=== PATIENT | male | born 1955 | race Caucasian/White ===

== ENCOUNTER 2016-11-27 16:08 | Emergency (ER) | payer SELFPAY ==
[2016-11-27 16:15] VITALS: BP 139/86; PULSE 94; TEMP 98.5; BMI 23.2
--- NOTE | 2016-11-27 17:03 | PDOC ---
History of Present Illness - General Chief Complaint: Bite Stated Complaint: DOG BITE Time Seen by Provider: 11/27/16 16:48 History Source: Patient Exam Limitations: No Limitations - History of Present Illness Initial Comments: 11/27/16 17:03 Delivering soni to a home where unrestrained dog was on the porch, when he came out the second step the dog lashed out and bit him through his left pet leg causing a superficial abrasion and puncture wound to the medial aspect of his left lower extremity. Patient states once he was attacked fell backwards falling onto his back and hitting his head on the sidewalk. There was no LOC, but states has some tenderness and contusion to his scalp, and some tenderness to his posterior chest wall. No shortness of breath, no chest pain or palpitations, no mental status changes, or neurologic changes. Maintenance Planning Clerk of the dog said vaccinations were all up-to-date Occurred: reports: just prior to arrival, this afternoon Severity: reports: mild, moderate Pain Location: reports: lower extremity Method of Injury: Yes: fall Loss of Consciousness: no loss of consciousness Associated Symptoms (Fall): headache Past History - Travel Traveled outside of the country in the last 30 days: No Close contact w/someone who was outside of country & ill: No - Past Medical History Allergies/Adverse Reactions: Allergies Allergy/AdvReac Type Severity Reaction Status Date / Time No Known Allergies Allergy Verified 11/27/16 16:15 Home Medications: Ambulatory Orders Amox-Tr/K Cl [Augmentin 875Mg Tablet] 1 tab PO BID #14 tablet 11/27/16 Simvastatin [Zocor] 10 mg PO HS 11/27/16 Other medical history: NONE - Psycho/Social/Smoking Cessation Hx Anxiety: No Suicidal Ideation: No Smoking History: Never smoked Hx Alcohol Use: Yes (WINE) Drug/Substance Use Hx: No Substance Use Type: None Review of Systems - Review of Systems Able to Perform ROS?: Yes Is the patient limited Grenadian proficient: Yes Constitutional: Yes: See HPI. No: Symptoms Reported, Fever (lower extremity), Malaise HEENTM: Yes: Symptoms Reported, See HPI, Other (contusion and head injury) Respiratory: Yes: See HPI. No: Symptoms reported Musculoskeletal: Yes: Symptoms Reported, Joint Pain, Joint Swelling Integumentary: Yes: Symptoms Reported, See HPI, Lesions Neurological: Yes: Symptoms reported ( from falling backwards), See HPI, Headache All Other Systems: Reviewed and Negative *Physical Exam - Vital Signs Last Vital Signs Temp Pulse Resp BP Pulse Ox 98.5 F 94 H 20 139/86 97 11/27/16 16:10 11/27/16 16:10 11/27/16 16:10 11/27/16 16:10 11/27/16 16:10 11/27/16 17:29 - Physical Exam General Appearance: Yes: Nourished, Appropriately Dressed, Apparent Distress, Mild Distress HEENT: positive: TANO, Normal ENT Inspection, TMs Normal, Pharynx Normal, Other (she'll abrasion and contusion approximately 3 cm to the crown of his head. Has no crepitus or step-offs, no evidence of skull fracture. No hemotympanum, no drainage from nose or ears,). negative: Nasal Congestion, Rhinorrhea Neck: positive: Supple. negative: Tender (full range of motion at neck, no C- spine tenderness crepitus or step-offs.), Lymphadenopathy (R), Lymphadenopathy ( L) Respiratory/Chest: positive: Chest Tender, Lungs Clear, Normal Breath Sounds, Other (official contusion/abrasion to right mid thorax posterior. No crepitus or step-offs, has no rib border tenderness, able to take deep inspiration without pain or difficulty.) Cardiovascular: positive: Regular Rhythm, Regular Rate Gastrointestinal/Abdominal: positive: Soft Extremity: positive: Normal Capillary Refill, Normal Range of Motion. negative : Normal Inspection (total abrasions, on the anterior aspect of his lower tibia spine, with puncture wound noted to the medial aspect proximally 4 cm from that abrasion. Has full range of motion in ankle and normal vascularization and sensation to toes. Is ambulatory without unsteadiness or tenderness.) Integumentary: positive: Dry, Warm, Swelling, Ecchymosis Neurologic: positive: field service specialist II-XII NML intact, Fully Oriented, Alert, Normal Mood/ Affect, Normal Response, Motor Strength 5/5 Progress Note - Progress Note Progress Note: provoked attack, with left lower extremity dog bite - dog is owned and orders can be identified for evaluation of dog. Therefore rabies vaccination And started on Augmentin, tetanus/diphtheria/pertussis booster updated today. Information filled out and sent to the health department, and patient will follow up with his PMD for wound check as needed *DC/Admit/Observation/Transfer Diagnosis at time of Disposition: Dog bite of left calf Qualifiers: Encounter type: initial encounter Qualified Code(s): S81.852A - Open bite, left lower leg, initial encounter - Discharge Dispostion Admit: No - Prescriptions Prescriptions: Amox-Tr/K Cl [Augmentin 875Mg Tablet] 1 tab PO BID #14 tablet - Patient Instructions Printed Discharge Instructions: How to Care for a Domestic Animal Bite Additional Instructions: Rest, keep area elevated. Avoid strenuous activity or exercise until wound is healed Use hot soaks to area to bring more blood to the surface and encourage drainage May change dressings as needed to keep clean - Allow water from shower to wash area thoroughly for 2-3 minutes, and pat dry upon exit of shower and replace dressing. Change his dressing daily until the wound is completely healed. May use Tylenol or Motrin for mild pain relief Augmentin 875 mg tablet every 12 hours for the next 7 days Use stronger medications as directed and prescribed Continue all medications as prescribed Followup with private physician in 2-3 days for wound check Return to emergency Department for worsening swelling, pain, redness, fevers as needed - Post Discharge Activity Work/School Note: Back to Work
[2016-11-27] MEDS ORDERED: DIPHTH,PERTUSS(ACELL),TET 0.5 ML DISP.SYRIN IM ONE (17:15)
[2016-11-27] MEDS ORDERED: AMOX TR/POT CLAV 875MG/125MG TABLETS (FP) PO ONE (17:15)
[2016-11-27] MEDS ORDERED: AMOX TR/POT CLAV 875MG/125MG TABLETS (FP) ONE (17:18)
== END 2016-11-27 17:41 | disposition home or self-care (01) ==
LOC: JERFT 16:08
PROC: 3E0234Z Introduction of Serum, Toxoid and Vaccine into Muscle, Percutaneous Approach (ICD-10-PCS; principal; 2016-11-27)
DX: S81.852A Open bite, left lower leg, initial encounter (principal); W18.30XA Fall on same level, unspecified, initial encounter; W54.0XXA Bitten by dog, initial encounter; S00.83XA Contusion of other part of head, initial encounter; S20.219A Contusion of unspecified front wall of thorax, initial encounter; Y93.89 Activity, other specified; Y92.098 Other place in other non-institutional residence as the place of occurrence of the external cause; Y99.0 Civilian activity done for income or pay
CPT/HCPCS: 90715; 99281-25

== ENCOUNTER 2022-12-23 14:54 | Emergency (ER) | payer OTHER ==
[2022-12-23 15:11] VITALS: BP 123/65; PULSE 103; RESP 16; TEMP 98; BMI 25.0
[2022-12-23] MEDS ORDERED: DIPHTH,PERTUSS(ACELL),TET 0.5 ML DISP.SYRIN IM ONE ×2 (15:29→15:40)
[2022-12-23] MEDS ORDERED: IBUPROFEN 100 MG/5 ML UNIT DOSE CUPS PO ONE (17:36)
== END 2022-12-23 18:51 | disposition home or self-care (01) ==
LOC: JER 14:54
PROC: 2W3SX1Z Immobilization of Right Foot using Splint (ICD-10-PCS; principal; 2022-12-23)
PROC: 3E0234Z Introduction of Serum, Toxoid and Vaccine into Muscle, Percutaneous Approach (ICD-10-PCS; 2022-12-23)
DX: S82.892A Other fracture of left lower leg, initial encounter for closed fracture (principal); R22.42 Localized swelling, mass and lump, left lower limb; M25.571 Pain in right ankle and joints of right foot; W14.XXXA Fall from tree, initial encounter
CPT/HCPCS: 29515; 73590-TC-LT-FY; 73610-TC-LT-FY; 73630-TC-LT; 90471; 90715; 99283-25

== ENCOUNTER 2022-12-30 04:33 | Day surgery (SDC) | payer OTHER ==
[2022-12-26 15:40] VITALS: BMI 25.0
[~2022-12-30 04:33] MED LIST: BUPIVACAINE HCL/PF 0.5% (5MG/ML) 10 ML VIAL IJ ONE; ceFAZolin SODIUM 1 GM VIAL IVPB ONE
[2022-12-30] MEDS ORDERED: LIDOCAINE HCL/PF 2% SDV 5ML VIAL ONE (09:07)
[2022-12-30] MEDS ORDERED: MIDAZOLAM HCL 2 MG/2 ML SINGLE DOSE VIAL ONE (09:08)
[2022-12-30] MEDS ORDERED: PROPOFOL 20 ML ONE (09:08)
[2022-12-30] MEDS ORDERED: ceFAZolin SODIUM 1 GM VIAL ONE (09:55)
[2022-12-30] MEDS ORDERED: ceFAZolin SODIUM 1 GM VIAL IVPB ONE (09:55)
[2022-12-30] MEDS ORDERED: DEXAMETHASONE SOD PHOSPHATE 4 MG/1 ML VIAL ONE (09:55)
[2022-12-30] MEDS ORDERED: hydrALAZINE HCL 20 MG/ML VIAL ONE (10:17)
[2022-12-30] MEDS ORDERED: HYDROmorphone HCl 2 MG/ML VIAL ONE (10:24)
[2022-12-30] MEDS ORDERED: BUPIVACAINE HCL/PF 0.5% (5MG/ML) 10 ML VIAL IJ ONE (11:44)
[2022-12-30] MEDS ORDERED: KETOROLAC TROMETHAMINE 30 MG/1 ML VIAL ONE (11:47)
[2022-12-30] MEDS ORDERED: ONDANSETRON 4 MG/2 ML VIAL ONE (11:47)
[2022-12-30] MEDS ORDERED: PROMETHAZINE HCL 25 MG/1 ML VIAL IVPB PRN (12:06)
[2022-12-30] MEDS ORDERED: oxyCODONE HCL 5 MG TABLET PO PRN ×2 (12:06)
[2022-12-30] MEDS ORDERED: ONDANSETRON 4 MG/2 ML VIAL IVPUSH PRN (12:06)
[2022-12-30] MEDS ORDERED: ACETAMINOPHEN 1000 MG/100 ML BAG IVPB ONE ×2 (12:07→12:33)
[2022-12-30] MEDS ORDERED: LACTATED RINGERS SOLUTION 1,000 ML IV SCH (12:15)
[2022-12-30] MEDS ORDERED: ACETAMINOPHEN INJECTION 100 ML IVPB ONE (12:30)
[2022-12-30 14:15] VITALS: RESP 18
[2022-12-30 16:06] VITALS: BP 119/68; PULSE 90; TEMP 98.3
== END 2022-12-30 15:40 | disposition home or self-care (01) ==
LOC: JASU-SURG 04:33
PROVIDERS: ATTEND Orthopaedic Surgery
PROC: 0SSG0ZZ Reposition Left Ankle Joint, Open Approach (ICD-10-PCS; 2022-12-30)
PROC: 0QSH04Z Reposition Left Tibia with Internal Fixation Device, Open Approach (ICD-10-PCS; principal; 2022-12-30 10:30)
DX: S82.862A Displaced Maisonneuve's fracture of left leg, initial encounter for closed fracture (principal); S96.812A Strain of other specified muscles and tendons at ankle and foot level, left foot, initial encounter; S93.432A Sprain of tibiofibular ligament of left ankle, initial encounter; X58.XXXA Exposure to other specified factors, initial encounter; Y93.9 Activity, unspecified; Y92.9 Unspecified place or not applicable
CPT/HCPCS: 27766; 27829; 28200; C1713; 76000-TC-FY; 94760